=== PATIENT | male | born 1940 | race Caucasian/White ===

== ENCOUNTER → 2016-11-29 | Outpatient (CLI) | payer BC, MEDICARE ==
[~2016-11-29] MED LIST: ALFUZOSIN HCL E10 MG PO; BREO ELLIPTA 11 EACH INH; CELEXA20 MG PO; COREG25 MG PO; CRESTOR10 MG PO; FOLIC ACID1 MG PO; IRON325 M1 PO; LYRICA75 MG PO; METAXALONE800 MG PO; NORVASC5 MG PO; PERCOCET 325-51 TAB PO; RESTORIL30 MG PO; SPIRIVA18 MCG INH; THERA M PLUS T1 EACH PO
== END | disposition short-term general hospital (02) ==
LOC: CLCARD 08:32
DX: I50.20 Unspecified systolic (congestive) heart failure (principal); I25.10 Atherosclerotic heart disease of native coronary artery without angina pectoris; I42.0 Dilated cardiomyopathy; I10 Essential (primary) hypertension; J44.9 Chronic obstructive pulmonary disease, unspecified; E78.5 Hyperlipidemia, unspecified; I73.9 Peripheral vascular disease, unspecified; I71.2 Thoracic aortic aneurysm, without rupture; Z98.890 Other specified postprocedural states